=== PATIENT | female | born 1990 | race Caucasian/White ===

== ENCOUNTER 2017-04-13 21:17 | Emergency (ER) | payer MEDICAID, OTHER ==
[2017-04-13 21:42] VITALS: RESP 18; O2SAT 100
[2017-04-13 22:11] LABS: HCG,QUALITATIVE URINE NEGATIVE (NEGATIVE)
[2017-04-13 22:27] LABS: SQUAMOUS EPITHIAL 13 /hpf (0-5); URINE BACTERIA MOD (<OCC); URINE BILIRUBIN NEGATIVE (NEGATIVE); URINE BLOOD 1+ (NEGATIVE); URINE CLARITY Hazy (Clear); URINE COLOR Yellow (YELLOW); URINE GLUCOSE (UA) NORMAL (Normal); URINE LEUKOCYTE ESTERASE 3+ Leu/uL (Negative); URINE NITRATE NEGATIVE (NEGATIVE); URINE PROTEIN 1+ mg/dL (NEGATIVE); URINE UROBILINOGEN NORMAL mg/dL (0.2-1.0)
--- NOTE | 2017-04-13 22:46 | C.PDOC ---
History Of Present Illness 26 year old female who presents to the emergency department with a complaint of nausea associated with vomiting, diarrhea and decreased PO intake ongoing for 2 days. Denied any fever or chills. Patient reported having sick contacts at home. PMD: none provided Time Seen by Provider: 04/13/17 22:46 Chief Complaint (Nursing): GI Problem History Per: Patient History/Exam Limitations: no limitations Onset/Duration Of Symptoms: Days (x2) Current Symptoms Are (Timing): Still Present Past Medical History Reviewed: Historical Data, Nursing Documentation, Vital Signs Vital Signs: Last Vital Signs Temp 98.9 F 04/13/17 21:40 Pulse 89 04/13/17 21:40 Resp 18 04/13/17 21:40 BP 117/79 04/13/17 21:40 Pulse Ox 100 04/13/17 23:19 - Medical History PMH: No Chronic Diseases Denies: Chronic Kidney Disease Surgical History: Denies: No Surg Hx Other Surgeries: Abdominoplasty - [facility] Procedures DELIVERY OF PRODUCTS OF CONCEPTION, EXTERNAL APPROACH (08/26/15) MONITORING OF POC, CARDIAC RATE, WOOD TILE INSTALLER APPROACH (08/26/15) REPAIR PERINEUM SKIN, EXTERNAL APPROACH (08/26/15) Family History: States: No Known Family Hx - Social History Hx Alcohol Use: Yes Hx Substance Use: No - Immunization History Hx Tetanus Toxoid Vaccination: No Hx Influenza Vaccination: No Hx Pneumococcal Vaccination: No Review Of Systems Constitutional: Negative for: Fever, Chills Gastrointestinal: Positive for: Nausea, Vomiting, Diarrhea Physical Exam - Physical Exam Appears: Well, No Acute Distress Skin: Normal Color, No Rash Nose: Normal Oral Mucosa: No Moist, Dry Throat: Normal, No Erythema Cardiovascular: Rhythm Regular Respiratory: No Decreased Breath Sounds, No Rales, No Rhonchi, No Wheezing Gastrointestinal/Abdominal: Normal Exam, Soft, No Tenderness Extremity: Normal ROM (upper/lower), No Tenderness, No Pedal Edema Neurological/Psych: Oriented x3, Normal Speech, Normal Cognition ED Course And Treatment - Laboratory Results Result Diagrams: 04/13/17 23:15 04/13/17 23:15 O2 Sat by Pulse Oximetry: 100 (RA) Pulse Ox Interpretation: Normal Medical Decision Making Medical Decision Making: Initial Impression: Nausea, vomiting and diarrhea Initial Plan: * CMP * Lipase * CBC * Pepcid 20mg IVP * NS 1,000ml IV per 1,000mls/hr * Toradol 30mg IVP * Zofran inj 4mg IVP * Urine preg * UA Scribe Attestation: Documented by Jennifer Naylor, acting as a scribe for Oriana Villa MD. Provider Scribe Attestation: All medical record entries made by the Scribe were at my direction and personally dictated by me. I have reviewed the chart and agree that the record accurately reflects my personal performance of the history, physical exam, medical decision making, and the department course for this patient. I have also personally directed, reviewed, and agree with the discharge instructions and disposition. Disposition Counseled Patient/Family Regarding: Studies Performed, Diagnosis, Need For Followup, Rx Given - Disposition Referrals: [facility] [Outside] [facility] [Outside] Disposition: HOME/ ROUTINE Disposition Time: 22:46 Condition: FAIR Additional Instructions: Please return if symptoms recur. Can use Kaopectate for the diarrhea Prescriptions: Ondansetron ODT [Zofran ODT] 1 odt PO BID PRN #6 odt PRN Reason: Nausea/Vomiting Instructions: Acute Nausea and Vomiting (ED), Acute Diarrhea (ED), Urinary Tract Infection in Women (DC) Forms: [employer] (Arabic) Print Language: BERMUDIAN - Clinical Impression Clinical Impression: Abdominal pain, Nausea, Diarrhea, UTI (urinary tract infection)
[2017-04-13] MEDS ORDERED: Sodium Chloride 0.9% 1,000 ML IV ONE (22:59)
[2017-04-13] MEDS ORDERED: Sodium Chloride 0.9% 1,000 ML ONE (23:11)
[2017-04-13 23:20] LABS: EOS # 0.1 K/uL (0.0-0.7); EOS % 0.8 % (0.0-4.0); LYMPH # 0.7 K/uL (1.0-4.3); MEAN CORPUSCULAR HEMOGLOBIN 30.9 pg (27.0-31.0); MEAN PLATELET VOLUME 7.9 fL (7.2-11.7); MONO # 0.2 K/uL (0.0-0.8)
[2017-04-13 23:33] LABS: ALBUMIN 3.8 g/dL (3.5-5.0); ALT/SGPT 31 U/L (9-52); AST/SGOT 23 U/L (14-36); BLOOD UREA NITROGEN 14 mg/dL (7-17); CALCIUM 8.4 mg/dl (8.6-10.4); GFR AFRICAN-AMERICAN > 60; GFR NON-AFRICAN AMERICAN > 60; LIPASE 77 U/L (23-300)
[2017-04-13 23:41] LABS: BASO % 0.3 % (0.0-2.0); HEMOGLOBIN 14.5 g/dL (11.0-16.0); LYMPH % 9.1 % (20.0-40.0); MEAN CELL VOLUME 86.3 fL (81.0-99.0); MEAN CORPUSCULAR HGB CONC 35.8 g/dL (33.0-37.0); MONO % 2.9 % (0.0-10.0); NEUT % 86.9 % (50.0-75.0); PLATELET COUNT 330 K/uL (130-400); RBC 4.69 Mil/uL (3.80-5.20); RED CELL DISTRIBUTION WIDTH 12.9 % (11.5-14.5)
[2017-04-13 23:44] LABS: LYMPHOCYTE 9 % (20-40); MONOCYTE 3 % (0-10); NEUTROPHIL 88 % (50-75); PLATELET ESTIMATE NORMAL (NORMAL); TOTAL CELLS COUNTED 100
[2017-04-14 01:00] VITALS: BP 100/80; PULSE 70; TEMP 97.8
== END 2017-04-14 01:00 | disposition home or self-care (01) ==
LOC: C.ER 21:17
DX: N39.0 Urinary tract infection, site not specified (principal); R11.0 Nausea; R19.7 Diarrhea, unspecified; R10.9 Unspecified abdominal pain